=== PATIENT | female | born 1940 | race Two or more races ===

== ENCOUNTER 2025-04-18 10:14 | Emergency (ER) | payer OTHER ==
[~2025-04-18] VITALS: Ht 157.5 cm; Wt 63.5 kg
[2025-04-18] MEDS ORDERED: GLIPIZIDE XL10 MG PO (10:45)
[2025-04-18] MEDS ORDERED: ONDANSETRON HCL 2 MG/ML VIAL IV STA (11:49)
[2025-04-18] MEDS ORDERED: KETOROLAC TROMETHAMINE 30 MG VIAL IM STA (11:51)
[2025-04-18] MEDS ORDERED: ORPHENADRINE CITRATE 30 MG/ML AMPUL IM STA (11:54)
[2025-04-18] MEDS ORDERED: 0.9 % SODIUM CHLORIDE 500 ML IV STA (11:55)
[2025-04-18] MEDS ORDERED: ORPHENADRINE CITRATE 30 MG/ML AMPUL ONE (11:56)
[2025-04-18] MEDS ORDERED: KETOROLAC TROMETHAMINE 30 MG VIAL ONE (11:56)
[2025-04-18] MEDS ORDERED: ONDANSETRON HCL 2 MG/ML VIAL ONE (11:56)
[2025-04-18 12:22] LABS: BASO % 0.4 % (0.1-1.2); EOS # 0.02 (0.04-0.54); EOS % 0.4 % (0.7-7.0); LYMPH # 0.84 (1.18-3.74); LYMPH % 16.4 % (19.3-53.1); MEAN PLATELET VOLUME 10.30 fl (9.4-12.4); MONO # 0.79 (0.24-0.82); NEUT # 3.43 (1.56-6.13); NEUT % 67.1 % (34.0-71.1); RED CELL DISTRIBUTION WIDTH 13.5 % (11.6-14.4)
[2025-04-18 12:24] LABS: MONO % 15.5 % (4.7-12.5)
[2025-04-18 12:33] LABS: ERYTHROCYTE SEDIMENTATION RATE 20 mm/hr (0-30)
[2025-04-18 13:02] LABS: ALT/SGPT 19.0 U/L (12-78); AST/SGOT 26.0 U/L (15-37); BILIRUBIN TOTAL 1.08 mg/dL (0.3-1.2); BUN CREA RATIO 16.0 (7.0-25.0); CREATININE SERUM 1.13 mg/dL (0.55-1.02); GFR 45.76; GLOBULINA 3.3 G/DL (2.4-3.5); GLUCOSE FASTING 125.0 mg/dL (65-100); OSMOLALITY SERUM 281.0 MOSM/KG (275-295)
[2025-04-18] MEDS ORDERED: SUMATRIPTAN SUCCINATE 6 MG/0.5 ML VIAL SUBCUTANEO ONE (13:51)
[2025-04-18] MEDS ORDERED: SUMATRIPTAN SUCCINATE 6 MG/0.5 ML VIAL SUBCUTANEO STA (13:52)
== END 2025-04-18 17:45 | disposition home or self-care (01) ==
LOC: ER 10:14
PROVIDERS: General Practice
DX: G43.511 Persistent migraine aura without cerebral infarction, intractable, with status migrainosus (principal); E11.9 Type 2 diabetes mellitus without complications; Z79.84 Long term (current) use of oral hypoglycemic drugs
CPT/HCPCS: 36415; 96365; 96366; 96372; 99282; J1885; J2360; J2405; J3490